=== PATIENT | male | born 1980 | race Caucasian/White ===

== ENCOUNTER 2022-04-15 11:07 | Emergency (ER) | payer MEDICAID, SELFPAY ==
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
[2022-04-15 11:12] VITALS: BP 119/68; PULSE 67; RESP 18; O2SAT 95; BMI 32.5
[2022-04-15 11:14] LABS: MANUAL DIFF FLAG NO
--- NOTE | 2022-04-15 11:14 | PC.NURSE ---
Late entry: 1110: 4mg zofran given IVP/ 50mcg fentanyl given IVP per verbal order under Dr. Wilkins. Waste witnessed by NGRTeofilo Davis and NIKOLAS Caldera. IV access: 18g rac. 1 L NS bolus administered.
[2022-04-15 11:16] LABS: Basophils Percent Auto 0.4 % (0-2); Eosinophils Absolute Auto 0.1 X10*3/uL (0.0-0.4); Eosinophils Percent Auto 0.9 % (0-4); Hematocrit 46.5 % (42.0-52.0); Hemoglobin 15.5 g/dl (14.0-18.0); Imm Gran Abs Auto 0.04 X10*3/uL (0.00-0.03); Imm Gran Pct Auto 0.4 % (0.0-0.4); Lymphocytes Absolute Auto 3.8 X10*3/uL (1.2-4.9); Lymphocytes Percent Auto 38.2 % (20-40); Mean Corpuscular HGB Conc 33.3 g/dl (31.0-36.0); Mean Corpuscular Hemoglobin 29.6 pg (27.0-33.0); Mean Corpuscular Volume 88.7 fL (80.0-98.0); Mean Platelet Volume 9.7 fL (9.4-12.4); Monocytes Absolute Auto 0.8 X10*3/uL (0.1-1.2); Monocytes Percent Auto 7.9 % (2-11); NRBC Pct Auto 0.2 /100WBC (0.0-0.2); Neutrophils Absolute Auto 5.1 x10*3/uL (2.0-8.3); Neutrophils Percent Auto 52.2 % (45-73); Platelet Count 272 X10*3/uL (160-400); Red Blood Count 5.24 X10*6/uL (4.60-5.80); Red Cell Distribution Width 14.5 % (11.0-16.0); White Blood Count 9.9 X10*3/uL (4.8-10.8)
[2022-04-15] MEDS: fentaNYL citrate/PF 100 MCG/2 ML VIAL 50 MCG IVPUSH (11:20)
[2022-04-15] MEDS: 0.9 % Sodium Chloride 1,000 ML 999 ML IVCONT (11:21)
[2022-04-15 11:25] LABS: INTERNATIONAL NORM RATIO 0.9 (0.9-1.1); Prothrombin Time 10.1 SEC (10.0-13.1)
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
[2022-04-15 11:28] LABS: Partial Thromboplastin Time 37.9 SEC (24.1-38.0)
[2022-04-15 11:30] VITALS: BP 130/52; PULSE 73; RESP 15; TEMP 36.6; O2SAT 99
[2022-04-15] MEDS: iohexoL 350 MG/ML 100 ML INFUS..BTL IV (11:32)
[2022-04-15 11:37] LABS: COVID-19 Test Negative (Negative)
[2022-04-15 11:40] LABS: Alanine Aminotransferase 41 U/L (0-40); Albumin Level 4.6 g/dL (3.5-5.0); Alkaline Phosphatase 92 U/L (39-117); Anion Gap 15 (12-20); Aspartate Amino Transferase 31 U/L (5-37); Bilirubin Direct < 0.2 mg/dL (0.0-0.5); Bilirubin Total 0.4 mg/dL (0.0-1.0); Blood Urea Nitrogen 16 mg/dL (9-16); Calcium 9.1 mg/dL (8.4-10.2); Carbon Dioxide 21 mmol/L (22-29); Chloride 107 mmol/L (96-108); Creatinine Clr Calc Pharmacy 98.7; Estimated Glomerular Filt Rate > 60; Glucose Random 112 mg/dL (60-115); Magnesium 2.1 mg/dL (1.6-2.6); Potassium 3.6 mmol/L (3.3-5.1); Sodium 139 mmol/L (135-145); Total Protein 7.4 g/dL (6.5-8.0)
[2022-04-15] MEDS: Diphth,Pertus(ACell),Tet Adult 0.5 ML SYRINGE IM (11:45)
[2022-04-15] MEDS: 0.9 % Sodium Chloride 1,000 ML 999 ML IV (11:52)
[2022-04-15 12:00] VITALS: BP 145/91; PULSE 59; RESP 13; O2SAT 100
[2022-04-15] MEDS: Lidocaine 4 % Cream KIT 1 APPL TOPICAL (13:46)
[2022-04-15 14:16] VITALS: BP 122/82; PULSE 65; RESP 15; TEMP 36.8; O2SAT 98
== END 2022-04-15 15:07 | disposition home or self-care (01) ==
LOC: HO.ED 15:06
PROVIDERS: Physician Assistant; Emergency Provider Emergency Medicine
DX: S21.212A Laceration without foreign body of left back wall of thorax without penetration into thoracic cavity, initial encounter (principal); S31.010A Laceration without foreign body of lower back and pelvis without penetration into retroperitoneum, initial encounter; R10.9 Unspecified abdominal pain; R07.89 Other chest pain; M54.6 Pain in thoracic spine; X99.1XXA Assault by knife, initial encounter; Y93.9 Activity, unspecified; Y92.9 Unspecified place or not applicable; Y99.9 Unspecified external cause status; Z20.822 Contact with and (suspected) exposure to COVID-19; Z79.899 Other long term (current) drug therapy
CPT/HCPCS: 12002; 36415; 71045; 71260; 74177; 80048; 80076; 83735; 85025; 85610; 85730; 86850; 86900; 86901; 87635; 90471; 90715; 96361; 96374; 96375; 99284; J0690; J2405; J3010; Q9967